=== PATIENT | male | born 1980 | race Caucasian/White ===

== ENCOUNTER → 2016-07-10 | Day surgery (SDC) | payer BC ==
[~2016-07-10] MED LIST: ADVIL100 MG PO; ALLEVE; ASPIRIN EC81 M1 PO; CIPRO PO; CORTISPORIN-TC10 ML OT; DICLOFENAC PO; FLEXERIL PO; IBUPROFEN200 M1; IBUPROFEN800 MG PO; MULTI VITAMIN1 EACH PO; NO MEDICATIONS; PHENERGAN25 MG PO; TYL325 PO; ULTRAM PO; VICODIN 5/500 T1 TAB PO; VOLTAREN75 MG PO; ZITHROMAX PO
--- NOTE | ~2016-07-10 | OR ---
Unit #: [id number] #: [id number] Patient: NICHOLE CRAWFORD [id number] [address] [address] [id number] O MR#: [id number] NAME: NICHOLE CRAWFORD ROOM: Date of Procedure: 07/10/2016 Admission Date: 07/10/2016 Surgeon: Tom Farah M.D. : 1980 Attending Physician: Tom Farah M.D. Primary Care Physician: Primary Care Physician No OPERATIVE REPORT PREOPERATIVE DIAGNOSES The patient presented with history of epigastric pain, weight loss, nausea, vomiting, dyspepsia, and upper abdominal pain. PROCEDURES PERFORMED Upper gastrointestinal endoscopy. POSTOPERATIVE DIAGNOSES 1. The patient had grade 2 to 3 distal erosive esophagitis. 2. There was a large amount of solid food residue in the stomach indicating significant gastroparesis. 3. Rest of the examination up to third part of duodenum was normal. RECOMMENDATIONS 1. The patient has severe gastroparesis and gastroesophageal reflux. He was advised to use small frequent low residue meals. 2. Do not eat late at night and have at least couple of hours between the dinner time and nap time. 3. Reglan 10 mg p.o. t.i.d. half an hour before major meals. 4. Avoid high-fiber diet and take small frequent low residue meals. 5. The patient will be followed up in the office in 3 to 4 months' time. SEDATION USED MAC. DESCRIPTION OF PROCEDURE Following detailed explanation of the potential risks and complications of an upper endoscopy, namely perforation, bleeding, and complications related to sedation, the patient was brought to GI lab and laid in the left lateral decubitus position. Lubricated tip of the Olympus video upper endoscope was passed through bite block into the proximal esophagus under direct vision. The entire esophageal mucosa was examined and the patient was noted to have grade 2 to 3 distal erosive esophagitis. There were linear erosions in the distal esophagus above the Z-line. The scope was then advanced into the gastric cavity and the latter was insufflated. Mucosa of the fundus, body, and antrum examined. The patient was noted to have moderate amount of solid food residue in the cavity of the stomach. Pylorus was intubated with visualization of the normal duodenal bulb and second and third part of the duodenum. Upon withdrawal and retroflexion, incisura, cardia, and greater curve examined and no additional findings noted. The solid food residue precluded visualization of part of the gastric mucosa. The scope was then withdrawn in the distal esophagus. Unit #: [id number] #: [id number] Patient: NICHOLE CRAWFORD The entire esophageal mucosa was examined all the way up to pharynx. No additional findings noted. The patient tolerated the procedure without any postprocedure complications. Dictated by... Scott Young/jay TD: 07/19/2016 06:48 JOB #: [id number] OPERATIVE REPORT Page 1 of 1 X Tom Farah MD X PROCEDURE OPERATIVE NOTE
== END | disposition home or self-care (01) ==
LOC: COPS 07:27
DX: K20.8 Other esophagitis (principal); K31.84 Gastroparesis; F17.210 Nicotine dependence, cigarettes, uncomplicated; Z88.0 Allergy status to penicillin; Z79.899 Other long term (current) drug therapy; Z98.890 Other specified postprocedural states
CPT/HCPCS: J2250; J2405